=== PATIENT | male | born 1950 | race Caucasian/White ===

== ENCOUNTER 2017-06-22 07:15 | Outpatient (CLI) ==
[2014-04-11 16:59] VITALS: BMI 29.0
--- NOTE | 2017-06-22 08:33 | US ---
EXAM: Ultrasound abdomen limited. HISTORY: Elevated liver enzymes. COMPARISON: None available. TECHNIQUE: Abdominal, real time with image documentation: limited (eg, single organ, quadrant, foll ow-up) FINDINGS: The liver demonstrates increased parenchymal echogenicity without intrahepatic biliary dil atation. Portal venous flow is normal in direction. The gallbladder is without shadowing stones, wa ll thickening or pericholecystic fluid. Common duct measures approximately 0.7 cm. The pancreas is not well seen due to bowel gas. IMPRESSION: Fatty infiltration of the liver.
== END 2017-06-22 07:16 | disposition home or self-care (01) ==
LOC: RAD 07:15
PROVIDERS: ATTEND Family Medicine
DX: R74.8 Abnormal levels of other serum enzymes (principal)